=== PATIENT | male | born 1990 | race Two or more races ===

== ENCOUNTER 2016-10-06 14:25 | Emergency (ER) | payer MEDICAID ==
[~2016-10-06] VITALS: Ht 167.6 cm; Wt 65.0 kg
[2016-10-06 16:51] LABS: BASOPHILS % 1.4 % (0.0-2.0); EOSINOPHILS % 1.9 % (0.0-5.0); HEMATOCRIT. 41.8 % (42.0-52.0); HEMOGLOBIN. 14.2 g/dL (14.0-18.0); LYMPHOCYTES % 26.6 % (20.0-50.0); MEAN CORPUSCULAR HEMOGLOBIN 29.4 pg (28.0-32.0); MEAN CORPUSCULAR VOLUME 86.6 fL (80.0-94.0); MEAN PLATELET VOLUME 9.1 fl (7.4-10.4); MONOCYTES % 7.3 % (2.0-8.0); NEUTROPHILS % 62.8 % (40.0-76.0); PLATELET 172 x1000/uL (130-400); RED BLOOD CELL COUNT 4.83 mill/uL (4.7-6.1); RED CELL DISTRIBUTION WIDTH 12.6 % (11.6-14.6)
[2016-10-06 16:56] LABS: CHLORIDE 100 mEq/L (98-107)
[2016-10-06 17:13] LABS: CARBON DIOXIDE 26 mEq/L (21-32)
[2016-10-06 17:26] VITALS: BP 120/81
[2016-10-06 17:27] LABS: BETA HYDROXYBUTYRATE 0.6 mMol/L (0.0-0.3)
== END 2016-10-06 18:42 | disposition home or self-care (01) ==
LOC: ER 16:14
DX: L03.115 Cellulitis of right lower limb (principal); L97.419 Non-pressure chronic ulcer of right heel and midfoot with unspecified severity
CPT/HCPCS: 36415; 73630; 80053; 82010; 82962; 85025; 99285